=== PATIENT | female | born 1985 | race Caucasian/White ===

== ENCOUNTER 2019-03-09 09:13 | Emergency (ER) | payer OTHER ==
[~2019-03-09] VITALS: Ht 167.6 cm; Wt 90.7 kg
[~2019-03-09 09:13] MED LIST: SYNTHROID50 MCG PO
[2019-03-09] MEDS ORDERED: KETO10TA2 PO (14:44)
== END 2019-03-09 16:22 | disposition home or self-care (01) ==
LOC: ER 09:13
DX: N20.0 Calculus of kidney (principal); K59.09 Other constipation; M94.0 Chondrocostal junction syndrome [Tietze]

== ENCOUNTER 2020-03-10 14:30 | Emergency (ER) | payer OTHER ==
[~2020-03-10] VITALS: Ht 167.6 cm; Wt 99.8 kg
[~2020-03-10 14:30] MED LIST changes: +KETO10TA2 PO
[2020-03-10] MEDS ORDERED: SYNTHROID137 MCG (14:49)
== END 2020-03-10 18:30 | disposition home or self-care (01) ==
LOC: ER 14:30
DX: R53.1 Weakness (principal); E89.0 Postprocedural hypothyroidism

== ENCOUNTER 2020-08-19 03:50 | Emergency (ER) | payer OTHER ==
[~2020-08-19] VITALS: Ht 167.6 cm; Wt 96.6 kg
[~2020-08-19 03:50] MED LIST changes: +SYNTHROID137 MCG
[2020-08-19] MEDS ORDERED: TOPROL XL25 M1 (04:10)
[2020-08-19] MEDS ORDERED: DOLOGESIC 500-1 EACH PO (07:04)
[2020-08-19] MEDS ORDERED: VISTARIL50 MG PO (07:05)
== END 2020-08-19 07:25 | disposition home or self-care (01) ==
LOC: ER 03:50
DX: R00.2 Palpitations (principal); M54.89 Other dorsalgia

== ENCOUNTER 2020-09-05 03:04 | Emergency (ER) | payer OTHER ==
[~2020-09-05] VITALS: Ht 167.6 cm; Wt 96.2 kg
[~2020-09-05 03:04] MED LIST changes: +DOLOGESIC 500-1 EACH PO; +TOPROL XL25 M1; +VISTARIL50 MG PO
[2020-09-05] MEDS ORDERED: KETO10TA2 PO ×2 (05:27→05:28)
[2020-09-05] MEDS ORDERED: ZYNCOF 20-400120 ML PO ×2 (05:27→05:28)
== END 2020-09-05 06:08 | disposition home or self-care (01) ==
LOC: ER 03:04
DX: R00.2 Palpitations (principal)

== ENCOUNTER 2020-10-25 04:48 | Emergency (ER) | payer OTHER ==
[~2020-10-25] VITALS: Ht 167.6 cm; Wt 95.3 kg
[~2020-10-25 04:48] MED LIST changes: +ZYNCOF 20-400120 ML PO
[2020-10-25] MEDS ORDERED: ZOLOFT50 MG PO (05:02)
[2020-10-25] MEDS ORDERED: NORFLEX100MG PO (11:30)
== END 2020-10-25 11:48 | disposition home or self-care (01) ==
LOC: ER 04:48 → CPU-OBS 04:49 → ER 11:48
DX: R00.2 Palpitations (principal)
CPT/HCPCS: G0378; G0379; 93005